=== PATIENT | male | born 1990 | race Caucasian/White ===

== ENCOUNTER 2017-04-03 20:58 | Emergency (ER) | payer OTHER ==
[~2017-04-03] VITALS: Ht 185.4 cm; Wt 108.9 kg
--- NOTE | 2017-04-05 08:02 | EKG ---
[facility] [address] [facility] [place], [place] [address] Signed Sinus tachycardia with premature supraventricular complexes Otherwise normal ECG No previous ECGs available Confirmed by CAMILA DARNELL MD ([id number] on 04/05/2017 8:02:10 AM Electronically Signed By: CAMILA DARNELL MD 04/05/17 0802 PATIENT NAME: ANA MITTAL Electrocardiogram DATE OF : [birth year] PHYSICIAN: CAMILA DARNELL MD REPORT #: [id number] REPORT IS CONFIDENTIAL AND NOT TO BE RELEASED WITHOUT AUTHORIZATION
== END 2017-04-04 00:58 | disposition home or self-care (01) ==
LOC: ED 20:58
DX: R10.9 Unspecified abdominal pain (principal); R07.89 Other chest pain; R20.0 Anesthesia of skin; I10 Essential (primary) hypertension; F17.200 Nicotine dependence, unspecified, uncomplicated; Z88.0 Allergy status to penicillin
CPT/HCPCS: 70450; 70496; 70498; 71045; 71275; 74175; 80053; 81001; 83690; 84484; 85025; 85379; 85610; 85730; 93005; 93010; 96374; 96375; 99284; J1200; J2765; Q9967